=== PATIENT | female | born 1985 | race Caucasian/White ===

== ENCOUNTER → 2018-04-06 | Outpatient (CLI) | payer OTHER ==
[~2018-04-06] MED LIST: ALBU17I INH; CINN500C2 PO; CYCL5TAB PO; FEXO15TA PO; GARC500T PO; JUNETAB2 PO; LACTTAB5 PO; LYSI500T12 PO; METF500T PO; OXYC-360 PO; PHEN15CA2 PO; ST.300CA PO; VALA500T PO; VALT1TAB26; VENTAER INH; VITACAP7 PO
[2018-04-06 08:34] LABS: AUTOMATED NEUTROPHIL # 3.8 TH/MM3 (1.8-7.7); BASOPHIL % 0.6 % (0.0-2.0); EOSINOPHIL # 0.1 TH/MM3 (0-0.4); EOSINOPHIL % 1.4 % (0.0-4.0); HEMATOCRIT 43.3 % (35.0-46.0); HEMOGLOBIN 14.4 GM/DL (11.6-15.3); LYMPH % 35.3 % (9.0-44.0); LYMPHOCYTE # 2.3 TH/MM3 (1.0-4.8); MEAN CELL VOLUME 94.5 FL (80.0-100.0); MEAN CORPUSCULAR HEMOGLOBIN 31.4 PG (27.0-34.0); MEAN CORPUSCULAR HGB CONC 33.2 % (32.0-36.0); MEAN PLATELET VOLUME 8.2 FL (7.0-11.0); MONO % 5.9 % (0.0-8.0); MONOCYTE # 0.4 TH/MM3 (0-0.9); NEUT % 56.8 % (16.0-70.0); PLATELET COUNT 276 TH/MM3 (150-450); RED BLOOD COUNT 4.58 MIL/MM3 (4.00-5.30); RED CELL DISTRIBUTION WIDTH 12.3 % (11.6-17.2); WHITE BLOOD COUNT 6.7 TH/MM3 (4.0-11.0)
[2018-04-06 08:37] LABS: BILIRUBIN, URINE NEG (NEG); BLOOD, URINE NEG (NEG); GLUCOSE,URINE NEG (NEG); KETONE, URINE NEG (NEG); MUCUS URINE FEW /lpf (OCC); NITRITE,URINE NEG (NEG); SQUAMOUS EPITHELIAL CELL URINE <1 /hpf (0-5); URINE COLOR YELLOW (YELLW/STRAW); URINE LEUKOCYTE ESTERASE NEG (NEG)
== END ==
LOC: CPRE 07:48
PROVIDERS: ATTEND Obstetrics & Gynecology
DX: Z01.812 Encounter for preprocedural laboratory examination (principal); R10.2 Pelvic and perineal pain; N94.12 Deep dyspareunia
CPT/HCPCS: 36415; 81001; 84703; 85025

== ENCOUNTER → 2018-04-12 | Day surgery (SDC) | payer OTHER ==
[~2018-04-12] VITALS: Ht 147.3 cm; Wt 72.4 kg
[~2018-04-12] MED LIST changes: +*MEPERIDINE 25 MG INJ VIAL PERIprocedural Use ONLY ONE; +*morphine SULFATE 8 MG/ML PERIprocedure ONLY ONE; -ALBU17I INH; +APREPITANT 40 MG CAP PO SCH; +BUPIVACAINE HCL PF 0.25% 30 ML VIAL ONE; +CHLORHEXIDINE GLUCONATE 2 % 1 PACK (2 CLOTHS) TOPICAL PRN; +CLINDAMYCIN 600 MG/NS PREMIX 50 ML IV SCH; +CLINDAMYCIN PHOS 600 MG/4 ML VIAL ONE; -CYCL5TAB PO; +DEXAMETHASONE SOD PHOS 4 MG/ML VIAL IV ONE; +DO NOT ADM ANY ANTICOAGULANT DRUGS PRN; +HYDROmorphone HCL PF 2 MG/ML VIAL IV PUSH PRN; +IBUPROFEN 600 MG TAB PO PRN; +INSULIN HUMAN REGULAR 1,000 UNITS/10 ML VIAL SQ PRN; +KETOROLAC TROMETHAMINE 30 MG/ML (IVP) VIAL IV PUSH ONE; +KETOROLAC TROMETHAMINE 30 MG/ML (IVP) VIAL IVP PRN; +LACTATED RINGER'S 1000 ML INJ 1,000 ML IV SCH; +LACTATED RINGER'S 1000 ML INJ 2,000 ML IV ONE; +LACTATED RINGER'S 1000 ML IV PRN; +LIDOCAINE HCL 1% PF 5 ML SYRINGE OTHER ONE; +LORazepam 0.5 MG TAB PO PRN; +METOPROLOL TARTRATE 25 MG TAB PO PRN; +MIDAZOLAM HCL 2 MG/2 ML VIAL ONE; +ONDANSETRON HCL 4 MG/2 ML VIAL IV ONE; +ONDANSETRON ODT 4 MG TAB SL PRN; -OXYC-360 PO; +POVIDONE IODINE 5% (ANTISEPSIS KIT) 4 APPLICATIONS EACH NARE PRN; +PROPOFOL 200 MG/20 ML AMP IV ONE; +ROCURONIUM INJ 50 MG/5 ML SYRINGE IV PUSH ONE; +SODIUM CHLORID 0.9% 500 ML IV PRN; +SODIUM CHLORIDE 0.9% FLUSH 10 ML FLUSH IV FLUSH PRN; +SODIUM CHLORIDE 0.9% FLUSH 10 ML FLUSH IV FLUSH SCH; +SUGAMMADEX SODIUM 200 MG/2 ML VIAL IV PUSH ONE; -VALT1TAB26; +diphenhydrAMINE HCL 25 MG CAP PO PRN; +oxyCODONE/ACETAMINOPHEN 5 MG/325 MG TAB PO PRN
--- NOTE | 2018-04-12 09:21 | MP ---
cc: Davis Watt MD DATE OF OPERATION: 04/12/2018 PREOPERATIVE DIAGNOSES: The patient with chronic history of pelvic pain, dyspareunia, dysmenorrhea, suspect endometriosis. PROCEDURE PERFORMED: Diagnostic hysteroscopy, exam under anesthesia. POSTOPERATIVE DIAGNOSES: Patient diagnosed with stage III-IV pelvic endometriosis with complex adhesion involving the distal sigmoid colon to the cul-de-sac and posterior uterine surface. Both ovaries appeared normal size and shape. No other significant peritoneal disease was involved, excluding the complex of the cul-de-sac. ANESTHESIA: General endotracheal intubation. ESTIMATED BLOOD LOSS: 25 mL. DRAINS: Lamar to gravity. INDICATIONS FOR PROCEDURE: The patient with debilitating chronic pelvic pain, pain associated with menses and intercourse. The patient tried several attempts at oral contraceptive management with no significant improvement. Recommendation is to proceed with a diagnostic laparoscopy, possible operative laparoscopy pending operative findings. DESCRIPTION OF PROCEDURE: The patient received clindamycin due to PENICILLIN ALLERGY as a prophylactic antibiotic. She underwent general anesthesia with endotracheal intubation. She was carefully positioned in dorsal lithotomy position, placing her lower extremities in Jace stirrups. She had sequentials placed for VTE prophylaxis. She was prepped and draped. A timeout was conducted, agreed by all present in the room. Lamar catheter was then inserted by sterile technique. Bimanual exam was significant for a very retroverted uterus. The cervix was small. A small VCare device was inserted through the cervical os into the uterine cavity for manipulation. Gloves were changed. The abdomen was examined. There were no obvious scars or deformities. Marcaine plain 0.25 was used to inject the incision sites. The umbilical port site was chosen first, placing a 5 mm Visiport trocar directly into the peritoneal cavity without complication. Pneumoperitoneum was established with CO2 at low pressure. She was then placed in Trendelenburg positioning. The accessory ports were placed using 5 mm trocars on the right and the left flank under direct vision. Manipulation of the pelvic anatomy was described above. There was significant contracture of the posterior cul-de-sac with the distal sigmoid that was dense and fibrous. The ovarian fossa were also evident with small amounts of peritoneal implants. Fallopian tubes appeared normal in size. The ovaries were normal in size and shape. Again, there is no other peritoneal disease noted. At the completion of the laparoscopy, the patient was stable. There was minor irrigation used to examine the cul-de-sac and all free fluid was retrieved through the suction device. At the completion of the case, the patient was stable. The pneumoperitoneum was decompressed. The trocars were removed. Full count was made and correct. The incision sites were closed with a subcuticular stitch of 4-0 Monocryl with Steri-Strips applied. The Lamar catheter and the VCare device were removed in an atraumatic fashion. The patient was then taken to recovery on room air. MD MACEY Lancaster/ANA , 08:55 AM , 09:20 AM
[2018-04-12 10:56] VITALS: BP 100/69; PULSE 93; RESP 18; TEMP 97.8; O2SAT 98
== END | disposition home or self-care (01) ==
LOC: HSDC 06:02
PROVIDERS: ATTEND Obstetrics & Gynecology
DX: R10.2 Pelvic and perineal pain (principal); N94.10 Unspecified dyspareunia; N94.6 Dysmenorrhea, unspecified; N80.3 Endometriosis of pelvic peritoneum; N73.6 Female pelvic peritoneal adhesions (postinfective); Z88.0 Allergy status to penicillin
CPT/HCPCS: 00840; 49320; J1100; J1885; J2175; J2250; J2270; J2405; J3010; J7120; J8501